=== PATIENT | female | born 1965 | race Caucasian/White ===

== ENCOUNTER 2017-01-09 20:15 | Emergency (ER) | payer OTHER, MEDICARE ==
[2017-01-09] MEDS ORDERED: MORPHINE IV ONE (20:35)
[2017-01-09] MEDS ORDERED: ZOFRAN IV ONE (20:35)
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
[2017-01-09 21:16] LABS: Albumin 4.5 g/dL (3.9-5); Albumin/Globulin Ratio 1.2 %; Bilirubin,Total 0.4 mg/dL (0.1-1.2); Calcium 9.6 mg/dL (8.4-10.2); Chloride 93.1 mmol/L (98-107); Total Protein 8.3 g/dL (6.3-8.2)
[2017-01-09 21:20] LABS: Basophils % (Auto) 0.3 % (0.0-1.8); Eosinophils % (Auto) 0.6 % (0.0-4.3); Hematocrit 33.5 % (30.3-42.9); Hemoglobin 11.4 gm/dl (10.1-14.3); Mean Corpuscular HGB Conc 34 % (30-34); Mean Corpuscular Hemoglobin 30 pg (28-32); Mean Corpuscular Volume 89 fl (79-97); Platelet Count 399 K/mm3 (140-440); Red Blood Count 3.75 M/mm3 (3.65-5.03); White Blood Count 11.8 K/mm3 (4.5-11.0)
[2017-01-09] MEDS ORDERED: NACL 0.9% 1000 ML 1,000 ML IV ONE (21:30)
[2017-01-09 21:52] LABS: Potassium 4.6 mmol/L (3.6-5.0)
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
[2017-01-10 01:50] VITALS: BP 113/72
== END 2017-01-10 01:50 | disposition home or self-care (01) ==
LOC: ED 20:15
DX: S16.1XXA Strain of muscle, fascia and tendon at neck level, initial encounter (principal); S00.83XA Contusion of other part of head, initial encounter; S30.1XXA Contusion of abdominal wall, initial encounter; I10 Essential (primary) hypertension; Z90.49 Acquired absence of other specified parts of digestive tract; F17.200 Nicotine dependence, unspecified, uncomplicated; V43.52XA Car driver injured in collision with other type car in traffic accident, initial encounter; Y93.89 Activity, other specified; Y99.8 Other external cause status; Y92.488 Other paved roadways as the place of occurrence of the external cause
CPT/HCPCS: 36415; 70450; 70486; 72125; 74177; 80053; 85025; 86850; 86900; 86901; 96361; 96374; 96375; 99284; J2270; J2405; J7030; Q9967